=== PATIENT | female | born 1935 | race Caucasian/White ===

== ENCOUNTER 2016-05-31 11:40 | Emergency (ER) | payer OTHER ==
[2016-05-31 11:45] VITALS: TEMP 97.7
[2016-05-31] MEDS ORDERED: NS 1,000 ML IV ONE (12:33)
[2016-05-31] MEDS ORDERED: ONDANSETRON 4 MG/2 ML VIAL IVP ONE (12:33)
[2016-05-31 12:45] LABS: % IMMATURE GRANULYOCYTES 0.4 % (0.0-1.1); ABSOLUTE IMMATURE GRANULOCYTES 0.03 10^3/uL (0.00-0.10); ADD DIFF? NO; ADD MORPH? NO; ADD SCAN? NO; ATYPICAL LYMPHOCYTE FLAG 0 (0-99); FRAGMENT RBC FLAG 0 (0-99); HEMATOCRIT 38.1 % (38.0-47.0); HEMOGLOBIN 13.3 g/dL (12.6-16.3); LEFT SHIFT FLG 0 (0-99); LIPEMIA HEMOLYSIS FLAG 90 (0-99); MEAN CELL HEMOGLOBIN 33.3 pg (27.9-34.1); MEAN CELL HEMOGLOBIN CONCENTR. 34.9 g/dL (32.4-36.7); MEAN CELL VOLUME 95.5 fL (81.5-99.8); MEAN PLATELET VOLUME 8.4 fL (8.7-11.7); PLATELET CLUMPS FLAG 0 (0-99); PLATELET COUNT 291 10^3/uL (150-400); RED BLOOD CELL COUNT 3.99 10^6/uL (4.18-5.33); RED CELL DISTRIBUTION WIDTH 12.3 % (11.5-15.2)
[2016-05-31 13:03] LABS: ANION GAP 15 mEq/L (8-16); CALCIUM 9.6 mg/dL (8.5-10.4); CARBON DIOXIDE 21 mEq/l (22-31); CHLORIDE 102 mEq/L (97-110); CREATININE 0.7 mg/dL (0.6-1.0); GLOMERULAR FILTRATION RATE > 60; GLUCOSE 91 mg/dL (70-100); SODIUM 138 mEq/L (134-144)
--- NOTE | 2016-05-31 13:45 | EDPHY ---
H & P Time Seen by Provider: 05/31/16 13:45 HPI/ROS: CHIEF COMPLAINT: Vomiting, dehydration. HISTORY OF PRESENT ILLNESS: The patient is an 80-year-old female with a history of ulcerative colitis who presents with vomiting since Sunday night. She cannot keep any food or fluids down. She describes the vomiting as mostly dry-heaving. She admits associated weakness. She denies diarrhea, fever, abdominal pain, chills, recent sick contact. She reports a history of similar symptoms that was not as severe. She denies other complaints. REVIEW OF SYSTEMS: A complete 10-point review of systems was performed and is negative except for those items mentioned in the HPI. Past Medical/Surgical History: Ulcerative colitis, osteoporosis, bipolar disorder. Social History: Nonsmoker. Smoking Status: Never smoked Physical Exam: General Appearance: Alert, nontoxic, talkative Eyes: Pupils equal and round, no conjunctival pallor or injection ENT, Mouth: Mucous membranes moist Neck: Normal inspection Respiratory: Rales at both bases Cardiovascular: 2/6 systolic murmur. Regular rate and rhythm Gastrointestinal: Abdomen is soft and non-tender Neurological: A&O, nonfocal exam Skin: Warm and dry, no rash Extremities: Nontender, no pedal edema Psychiatric: Mood and affect normal Constitutional: Initial Vital Signs Temperature (C) 36.5 C 05/31/16 11:43 Heart Rate 101 H 05/31/16 11:43 Respiratory Rate 16 05/31/16 11:43 Blood Pressure 167/105 H 05/31/16 11:43 O2 Sat (%) 93 05/31/16 11:43 O2 Delivery Mode Room Air Allergies/Adverse Reactions: propoxyphene HCl [From Darvon] Allergy (Verified 09/12/15 09:57) Home Medications: Medication Instructions Recorded Azathioprine 09/12/15 Calcium & Magnesium Carbonate 09/12/15 [Antacid Gelcap] Clonazepam 09/12/15 Fosamax 5mg 09/12/15 Ondansetron Odt [Zofran Odt] 4 mg PO Q4PRN PRN #8 tab 09/12/15 Sulfamethox/Tmp 09/12/15 Sulfasalazine 09/12/15 Synthroid 09/12/15 Venlafaxine 25MG (RX) 09/12/15 Ondansetron Odt [Zofran Odt 4 mg 4 mg PO Q4 PRN #6 tab 05/31/16 (*)] Medical Decision Making ED Course/Re-evaluation: An IV was established and labs ordered. 1L IV saline administered for hydration , 4mg IV Zofran for nausea. 1432: Patient tolerated PO fluids well and wants to go home. Encouraged admission, given prolonged sx and advanced age, but pt declines. Abd remains soft and NT. She was given return precautions prior to discharge. I answered all of her questions. I have referred her to cardiology for follow up for her heart murmur. Unaware of prior murmur, doubt this is contributing to sx today. No evidence of CHF. She is comfortable with the plan. Differential Diagnosis: includes though not limited to severe dehydration, right sided heart failure, SBO, surgical abdomen, pneumonia. - Data Points Laboratory Results: Laboratory Results 05/31/16 12:33 05/31/16 12:33 Medications Given: Discontinued Medications Sodium Chloride (Ns) 1,000 mls @ 0 mls/hr IV ONCE ONE PRN Reason: Wide Open Stop: 05/31/16 12:34 Last Admin: 05/31/16 12:44 Dose: 1,000 mls Ondansetron HCl (Zofran) 4 mg IVP EDNOW ONE Stop: 05/31/16 12:34 Last Admin: 05/31/16 12:44 Dose: 4 mg Departure - Departure Disposition: Home, Routine, Self-Care Clinical Impression: Dehydration Vomiting Qualifiers: Vomiting type: unspecified Vomiting Intractability: non-intractable Nausea presence: with nausea Qualifier Code: (R11.2) Nausea with vomiting, unspecified Condition: Good Instructions: Acute Nausea and Vomiting (ED), Dehydration (ED) Additional Instructions: Drink clear fluids and advance diet slowly as tolerable. Take Zofran as prescribed when needed for nausea. You have a heart murmur that was present on your exam today. You should follow up with a active directory architect soon for evaluation of this. You have been provided the telephone number of Dr. Blanco, cardiology, and can call for an appointment. Return to the emergency department for serious worsening of condition. Referrals: FLORIN VINSON [Primary Care Provider] - As per Instructions Joyce Blanco MD [Medical Doctor] - As per Instructions Prescriptions: Ondansetron Odt [Zofran Odt 4 mg (*)] 4 mg PO Q4 PRN #6 tab PRN Reason: Nausea Report Scribed for: Adriane Koo Report Scribed by: Leon Beaulieu Date of Report: 05/31/16 Time of Report: 13:45 Physician Review and Approval Statement: 05/31/16 13:45 Portions of this note were transcribed by a ophthalmic medical technician. I personally performed a history, physical exam, medical decision making, and confirmed accuracy of information the transcribed note.
[2016-05-31 14:55] VITALS: BP 138/80; PULSE 82; RESP 14; O2SAT 96
== END 2016-05-31 14:54 | disposition home or self-care (01) ==
DX: E86.0 Dehydration (principal); R11.2 Nausea with vomiting, unspecified
CPT/HCPCS: 96360; 99284; J2405